=== PATIENT | female | born 1970 | race Caucasian/White ===

== ENCOUNTER 2020-11-23 08:54 | Emergency (ER) | payer SELFPAY ==
[2020-11-23] MEDS ORDERED: VIBRAMYCIN100 MG PO (09:28)
== END 2020-11-23 09:46 | disposition home or self-care (01) ==
LOC: FER 08:54
DX: L03.114 Cellulitis of left upper limb (principal); F17.200 Nicotine dependence, unspecified, uncomplicated; Z87.09 Personal history of other diseases of the respiratory system; Z88.5 Allergy status to narcotic agent
CPT/HCPCS: 90471; 90715

== ENCOUNTER 2020-11-25 10:50 | Emergency (ER) | payer SELFPAY ==
[~2020-11-25 10:50] MED LIST: VIBRAMYCIN100 MG PO
== END 2020-11-25 11:25 | disposition home or self-care (01) ==
LOC: FER 10:50
DX: T22.212D Burn of second degree of left forearm, subsequent encounter (principal); X58.XXXD Exposure to other specified factors, subsequent encounter
CPT/HCPCS: 99282